=== PATIENT | male | born 1935 | race Caucasian/White ===

== ENCOUNTER → 2016-06-11 | Outpatient (CLI) | payer MEDICARE, OTHER ==
[~2016-06-11] MED LIST: METOPROLOL
--- NOTE | 2016-06-11 17:22 | RADRPT ---
PROCEDURE: XR Right hip and pelvis. CLINICAL INDICATION: Right hip pain. Pelvic pain. Postop. TECHNIQUE: Two views. Frontal pelvis and lateral right hip. COMPARISON: 10/03/2015. FINDINGS: There is no fracture or dislocation. The soft tissues are normal. There is a right hip total arthroplasty which appears satisfactory. There are moderate degenerative changes of the left hip with joint space narrowing and osteophytes. There is no lytic or blastic lesion. The upper pelvis is not completely included on the image. There are multiple small metal foreign bodies overlying the region of the prostate consistent with b rachytherapy. IMPRESSION: 1. Satisfactory postoperative appearance of the right hip. 2. Moderate degenerative changes of the left hip. 3. 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 RPTAT: QQ .Gold Norton MD, Date Time Electronically viewed and signed by .Gold Norton MD, on 06/11/2016 17:21 .R/
--- NOTE | 2016-06-17 21:44 | HKNOTE ---
DATE OF SERVICE: 06/11/2016 The patient is a 80-year-old male who was last seen by me on 10/03/2015 and had revised socket on . At that time, he told me that he has ongoing problems with his back. The patient has had decreasing levels on his serum cobalt and chromium. He continues to get pain in his right buttocks radiating to the lower back. PAST MEDICAL HISTORY: 1. The patient is prediabetic. 2. Hypertension. MEDICATIONS: 1. Lisinopril daily. 2. Metoprolol daily. 3. Celebrex daily. 4. Simvastatin daily. Patient is concerned that the pain in his right hip and his right buttocks may be coming from his hi p. REVIEW OF SYSTEMS: Note that systems review is completely negative. PHYSICAL EXAMINATION GENERAL: A fit-looking 80-year-old male. He walks without a walking aid. His gait is normal. HIPS: Both hips have a full range of motion without pain. NEUROLOGICAL: Examination of the lower extremities is normal. IMAGING: Plain x-rays of his pelvis and hips obtained today show that he has had revised right ASR socket hip replacement. All components are well attached to the bone, not the slightest sugge stion of malalignment or loosening. MANAGEMENT: The patient was advised that these symptoms are coming from his lumbar spine. He nu mary does not have a spine doctor. I recommended a new MRI scan to the lumbar spine, but he decline d, saying that these symptoms are not bad enough at present. He will make a decision in the next 2 weeks and will call if he wishes to proceed with an MRI scan of the lumbar spine. He is given reassurance that his right hip is doing well. Dictated By: IRIS WU/TRE Conf#: [id number] DID#: [id number]
== END | disposition home or self-care (01) ==
LOC: HKI 14:29
DX: M25.551 Pain in right hip (principal); I10 Essential (primary) hypertension
CPT/HCPCS: 73502; G0463